=== PATIENT | female | born 1985 | race African-American/Black ===

== ENCOUNTER → 2019-12-31 11:17 | Outpatient (CLI) | payer OTHER, SELFPAY ==
--- NOTE | ~2019-12-31 | CT_ITS ---
EXAMINATION: CT pelvis wo con EXAM DATE: 12/31/2019 11:32 INDICATION: Pelvic pain and pressure. Bleeding. TECHNIQUE: Spiral CT pelvis wo con was performed without contrast. Axial, coronal and sagittal imag es were reviewed. The dose-length product (DLP) for this examination was 557.72 mGy-cm. The exposur e was tailored according to patient size (auto mA exposure control), and iterative reconstruction ( IR) was used as additional dose reduction technique. There is no prior study for comparison. FINDINGS: Normal appendix. No evidence of bowel dilation. Probable hysterectomy. There is mild diste ntion of the vaginal cavity with fluid and gas. No pelvic lymphadenopathy. Bladder is unremarkable. T here are no osseous abnormalities identified. IMPRESSION: Mildly distended vaginal cavity with fluid, gas. Reviewed, dictated and finalized at location A.
== END ==
PROVIDERS: Visit Provider Obstetrics & Gynecology
DX: R10.2 Pelvic and perineal pain (principal)
CPT/HCPCS: 72192

== ENCOUNTER → 2020-01-17 14:16 | Outpatient (CLI) | payer OTHER, SELFPAY ==
--- NOTE | ~2020-01-17 | US_ITS ---
EXAMINATION: US transvaginal EXAM DATE: 01/17/2020 14:48 INDICATION: Pelvic pain and bleeding. Hysterectomy. TECHNIQUE: Pelvic transvaginal sonogram was performed. There are multiple grayscale and Doppler imag es available for interpretation. There is no prior study for comparison. FINDINGS: The vaginal cuff is unremarkable. Small free pelvic fluid. Right adnexa: The ovary measures 4.0 x 2.1 x 2.0 cm and is morphologically normal. Ovarian vascular f low confirmed. Left adnexa: The ovary measures 3.6 x 2.6 x 2.9 cm and is morphologically normal. Ovarian vascular fl ow confirmed. IMPRESSION: 1. Unremarkable pelvic ultrasound exam. Reviewed, dictated and finalized at location A.
== END ==
PROVIDERS: Visit Provider Nurse Practitioner
DX: R10.2 Pelvic and perineal pain (principal)
CPT/HCPCS: 76830